=== PATIENT | female | born 1955 | race Caucasian/White ===

== ENCOUNTER 2023-05-02 12:17 | Emergency (ER) | payer OTHER ==
[2023-05-02 12:24] VITALS: BMI 23.8
[2023-05-02] MEDS ORDERED: ACETAMINOPHEN 500 MG TABLET (FP) PO ONE (13:10)
[2023-05-02] MEDS ORDERED: ACETAMINOPHEN 325 MG TABLET (FP) ONE (13:35)
[2023-05-02 14:54] LABS: BASO % 0.2 % (0-2.0); EOS % 0.1 % (0-4.5); HEMATOCRIT 35.8 % (32.4-45.2); HEMOGLOBIN 12.3 GM/dL (10.7-15.3); LYMPH % 10.5 % (8-40); MCH 27.6 pg (25.7-33.7); MCHC 34.4 g/dl (32.0-36.0); MEAN CELL VOLUME 80.4 fl (80-96); MEAN PLT VOLUME 10.1 fl (7.5-11.1); NEUT % 81.2 % (42.8-82.8); PLATELET COUNT 207 10^3/uL (134-434); RBC 4.45 M/mm3 (3.60-5.2)
[2023-05-02 15:25] LABS: CHLORIDE 97 mmol/L (98-107); SODIUM 137 mmol/L (136-145)
[2023-05-02 15:27] LABS: CALCIUM 9.1 mg/dL (8.5-10.1)
[2023-05-02 15:28] LABS: ALBUMIN 3.4 g/dl (3.4-5.0); BLOOD UREA NITROGEN 12.1 mg/dL (7-18); CO2 28 mmol/L (21-32); GLUCOSE,RANDOM 98 mg/dL (74-106)
[2023-05-02 15:31] LABS: CREATININE 0.7 mg/dL (0.55-1.3); SGOT/AST 18 U/L (15-37); SGPT/ALT 22 U/L (13-61)
[2023-05-02 15:32] LABS: BILIRUBIN,TOTAL 0.5 mg/dL (0.2-1)
[2023-05-02 15:33] LABS: TOT PROT 7.8 g/dl (6.4-8.2)
[2023-05-02 15:34] LABS: ALK PHOS 86 U/L (45-117)
[2023-05-02 15:41] LABS: ANION GAP 12 MMOL/L (8-16); POTASSIUM 2.9 mmol/L (3.5-5.1)
[2023-05-02] MEDS ORDERED: PIPERACILLIN/TAZOB 4.5 GM 4.5 GM in DEXTROSE 5%-WATER 100 ML IVPB ONE (16:04)
[2023-05-02] MEDS ORDERED: AZITHROMYCIN IVPB 500 MG in DEXTROSE 5%-WATER - 250 ML IVPB ONE (16:04)
[2023-05-02] MEDS ORDERED: VANCOMYCIN 1,000 MG in DEXTROSE 5%-WATER - 250 ML IVPB ONE (16:04)
[2023-05-02] MEDS ORDERED: POTASSIUM CHLORIDE ORAL LIQUID 20 MEQ/15 ML PO ONE (16:06)
[2023-05-02] MEDS ORDERED: VANCOMYCIN 1 GRAM (PRE-DOCKED) 1,000 MG/250 ML BAG IVPB ONE (16:16)
[2023-05-02] MEDS ORDERED: POTASSIUM CHLORIDE ORAL LIQUID 20 MEQ/15 ML ONE (16:16)
[2023-05-02] MEDS ORDERED: AZITHROMYCIN IVPB 500 MG/250 ML BAG IVPB ONE (16:17)
[2023-05-02] MEDS ORDERED: PIPERACILLIN/TAZOB 4.5 GM 4.5 GM/100 ML BAG IVPB ONE (19:25)
[2023-05-02 19:56] LABS: POTASSIUM 3.2 mmol/L (3.5-5.1)
[2023-05-02] MEDS ORDERED: MAGNESIUM SULF 50% (8.12 MEQ/2 ML-1 GM VIAL) IVPB ONE (19:58)
[2023-05-02 20:01] LABS: CALCIUM 9.4 mg/dL (8.5-10.1); CREATININE 0.7 mg/dL (0.55-1.3)
[2023-05-02] MEDS ORDERED: MAGNESIUM SULFATE IN WATER 2 GM/50 ML IVPB IVPB ONE (20:03)
[2023-05-02 21:44] VITALS: BP 105/78; PULSE 74; RESP 16; TEMP 98.3
== END 2023-05-02 21:43 | disposition home or self-care (01) ==
LOC: JER 12:17
PROC: 3E03329 Introduction of Other Anti-infective into Peripheral Vein, Percutaneous Approach (ICD-10-PCS; principal; 2023-05-02)
PROC: 3E03329 Introduction of Other Anti-infective into Peripheral Vein, Percutaneous Approach (ICD-10-PCS; 2023-05-02)
PROC: 3E033GC Introduction of Other Therapeutic Substance into Peripheral Vein, Percutaneous Approach (ICD-10-PCS; 2023-05-02)
DX: R06.02 Shortness of breath (principal); R07.9 Chest pain, unspecified; R05.9 Cough, unspecified; R50.9 Fever, unspecified; R53.1 Weakness; E87.6 Hypokalemia; J18.9 Pneumonia, unspecified organism; Z20.822 Contact with and (suspected) exposure to COVID-19
CPT/HCPCS: 0241U-QW; 36415; 71045-TC-FY; 73564-TC-RT-FY; 73630-TC-RT-FY; 80048; 80053; 83880; 84484; 85025; 93005; 93010; 96365; 96368; 96375; 99285-25

== ENCOUNTER 2023-08-28 14:45 | Emergency (ER) | payer OTHER ==
[2023-08-28 14:54] VITALS: BP 200/160; PULSE 68; RESP 18; TEMP 98.2; BMI 23.3
== END 2023-08-28 18:50 | disposition home or self-care (01) ==
LOC: JER 14:45
DX: S60.221A Contusion of right hand, initial encounter (principal); S50.02XA Contusion of left elbow, initial encounter; M79.641 Pain in right hand; M25.522 Pain in left elbow; Y92.093 Driveway of other non-institutional residence as the place of occurrence of the external cause; S00.83XA Contusion of other part of head, initial encounter; R51.9 Headache, unspecified; W01.0XXA Fall on same level from slipping, tripping and stumbling without subsequent striking against object, initial encounter; W22.8XXA Striking against or struck by other objects, initial encounter
CPT/HCPCS: 73070-TC-LT-FY; 73130-TC-RT-FY; 99283-25